=== PATIENT | male | born 1980 | race Caucasian/White ===

== ENCOUNTER 2020-02-07 23:07 | Emergency (ER) | payer OTHER ==
[~2020-02-07] VITALS: Ht 182.9 cm; Wt 140.0 kg
[2020-02-07] MEDS ORDERED: ondansetron/PF 4mg/2ml inj IV ONE (23:35)
[2020-02-07] MEDS ORDERED: morphine 4 MG/ML inj SYRINge IV ONE (23:35)
[2020-02-07] MEDS ORDERED: aspirin 325mg tablet PO ONE (23:35)
[2020-02-07] MEDS ORDERED: normal saline 1000ml 1,000 ML IV ONE (23:35)
[2020-02-07 23:36] LABS: BASOPHILS # (AUTO) 0.1 X10'3 (0-0.2); EOSINOPHILS # (AUTO) 0.3 X10'3 (0-0.9); EOSINOPHILS % (AUTO) 2.4 % (0-6); HEMATOCRIT 47.3 % (42.0-52.0); HEMOGLOBIN 16.8 g/dl (14.0-17.9); LYMPHOCYTES # (AUTO) 4.6 X10'3 (1.1-4.8); LYMPHOCYTES % (AUTO) 33.6 % (21-51); MEAN CORPUSCULAR HGB CONC 35.4 g/dL (33.0-36.5); MEAN CORPUSCULAR VOLUME 90.1 FL (78-98); MONOCYTES # (AUTO) 0.9 X10'3 (0-0.9); MONOCYTES % (AUTO) 6.4 % (2-12); NEUTROPHILS # (AUTO) 7.8 X10'3 (1.8-7.7); NEUTROPHILS % (AUTO) 56.6 % (42-75); PLATELET COUNT 390 X10'3 (140-440); RED BLOOD COUNT 5.24 X10'6 (4.70-6.10); RED CELL DISTRIBUTION WIDTH 13.3 % (11.5-14.5); WHITE BLOOD COUNT 13.7 X10'3 (4.5-11.0)
[2020-02-08] LABS: ALBUMIN/GLOBULIN RATIO 1.1 (1.1-1.5); ALKALINE PHOSPHATASE 100 IU/L (46-116); BILIRUBIN,TOTAL 0.8 MG/DL (0.1-1.0); BLOOD UREA NITROGEN 9 MG/DL (7-18); BUN/CREATININE RATIO 8.1 (5.4-32.0); CALCIUM 8.5 MG/DL (8.5-10.1); CREATININE 1.11 MG/DL (0.60-1.10); TOTAL CARBON DIOXIDE 28.8 MMOL/L (24-32); TOTAL PROTEIN 7.7 G/DL (6.4-8.2); eGFR 73 ML/MIN
[2020-02-08 00:09] LABS: D-DIMER < 0.19 MG/L FEU (0-0.50)
[2020-02-08 00:24] LABS: ALANINE AMINOTRANSFERASE 61 U/L (12-78); ANION GAP 11 (8-16); CHLORIDE 103 MMOL/L (99-107); GLUCOSE 125 MG/DL (70-104); SODIUM 143 MMOL/L (135-145)
[2020-02-08 00:28] LABS: ASPARTATE AMINO TRANSFERASE 35 U/L (10-37); POTASSIUM 3.8 MMOL/L (3.5-5.1)
[2020-02-08 00:35] LABS: MAGNESIUM 2.1 MG/DL (1.5-2.4)
--- NOTE | 2020-02-08 00:52 | NUR ---
He walked out to the registration area and so I went to get him, he said he was going outside to see his sister. i told him he couldn't go out with an IV. I had him go back to his room. I encouraged him to text his sister, that she can come in with him.
[2020-02-08 01:30] VITALS: BP 138/90
== END 2020-02-08 02:50 | disposition home or self-care (01) ==
LOC: ER 23:08
DX: R07.89 Other chest pain (principal); F17.200 Nicotine dependence, unspecified, uncomplicated; M54.9 Dorsalgia, unspecified; R20.0 Anesthesia of skin; Z72.89 Other problems related to lifestyle
CPT/HCPCS: 36415; 71045; 80053; 83735; 84484; 85025; 85379; 93005; 96374; 96375; 99285; J2270; J2405; J7030